=== PATIENT | female | born 1970 | race Caucasian/White ===

== ENCOUNTER 2017-03-27 05:40 | Day surgery (SDC) | payer OTHER ==
[~2017-03-27] VITALS: Ht 175.3 cm; Wt 106.6 kg
[2017-03-27] MEDS ORDERED: ROCURONIUM BROMIDE 10 MG/ML (ZEMURON) IV ONE (05:41)
[2017-03-27] MEDS ORDERED: fentaNYL CITRATE/PF 100 MCG/2 ML AMP IVP ONE (05:41)
[2017-03-27] MEDS ORDERED: LR 1,000 ML IV.SOLN IV ONE (05:41)
[2017-03-27] MEDS ORDERED: KETOROLAC TROMETHAMINE 30 MG VIAL IVP ONE (05:41)
[2017-03-27] MEDS ORDERED: NS 1000 ML BAG IV ONE (05:41)
[2017-03-27] MEDS ORDERED: ROPIVACAINE 40 MG/20 ML AMP EP ONE (05:41)
[2017-03-27] MEDS ORDERED: MIDAZOLAM HCL 5 MG/ML VIAL (VERSED) IV ONE (05:41)
[2017-03-27] MEDS ORDERED: NS IRRIG SOLN 1000 ML IR ONE (05:41)
[2017-03-27] MEDS ORDERED: SEVOFLURANE 15 MIN GAS INH ONE (05:41)
[2017-03-27] MEDS ORDERED: PROPOFOL 200MG/ 20ML VIAL (DIPRIVAN) IV ONE (05:41)
[2017-03-27] MEDS ORDERED: ONDANSETRON HCL 4 MG/2 ML VIAL IVP ONE (05:41)
[2017-03-27] MEDS ORDERED: LR 1,000 ML IV SCH (07:58)
[2017-03-27] MEDS ORDERED: MEPERIDINE HCL/PF 25 MG/ML DISP.SYRIN IVP PRN ×2 (08:00)
[2017-03-27] MEDS ORDERED: ONDANSETRON HCL 4 MG/2 ML VIAL IVP PRN ×2 (08:00→09:00)
[2017-03-27] MEDS ORDERED: KETOROLAC TROMETHAMINE 30 MG VIAL IVP PRN (08:00)
[2017-03-27] MEDS ORDERED: HYDROmorphone 1 MG INJ. 1 MG/ML AMPUL IVP PRN (08:00)
[2017-03-27] MEDS ORDERED: HYDROmorphone 2 MG/ML VIAL IVP PRN ×2 (08:00)
[2017-03-27] MEDS ORDERED: HYDROmorphone 2 MG TAB PO PRN (09:00)
[2017-03-27] MEDS ORDERED: PROMETHAZINE HCL 25 MG/ML AMP IM PRN (09:00)
[2017-03-27] MEDS ORDERED: OXYCODONE/ACETAMINOPHEN 5-325 TABLET PO PRN (09:00)
[2017-03-27 10:00] VITALS: BP_SYST 134
[2017-03-28 12:17] LABS: HEPATITIS B CORE AB, TOTAL Negative (Negative); HEPATITIS B SURFACE AG Negative (Negative); HEPATITIS C VIRUS AB <0.1 s/co ratio (0.0-0.9)
== END 2017-03-27 11:20 | disposition home or self-care (01) ==
LOC: SMU 05:40 → SDS 05:40
PROVIDERS: ATTEND Obstetrics & Gynecology
DX: N83.202 Unspecified ovarian cyst, left side (principal); N83.201 Unspecified ovarian cyst, right side; Z88.8 Allergy status to other drugs, medicaments and biological substances; E66.01 Morbid (severe) obesity due to excess calories
CPT/HCPCS: 36415 ×2; 58661; 86704; 86706; 86803; 86886; 86900; 86901; 87340; 87536; 88305; C1727; J7120; J1885; J2250; J2405; J2704; J2795; J3010; J7030